=== PATIENT | male | born 1950 | race Caucasian/White ===

== ENCOUNTER 2016-09-15 11:40 | Emergency (ER) | payer MEDICARE, BC ==
--- NOTE | ~2016-09-15 | CR72 ---
[facility] A Service of [facility] RADIOLOGY TEXT RESULTS PATIENT: CHAYITO LAND LOCATION: [facility] : 48 UNIT #: [id number] AGE: [address]: Trey Ray MD SEX: M ORDER DR: [id number] [facility] [address] [place], [place] [address] [id number] E MR#: [id number] Acc #: [id number] NAME: CHAYITO LAND : 1950 SEX: M STUDY DATE/TIME: 09/15/2016 12:37 UNIT: [facility] ROOM: STUDY DESCRIPTION: CR Chest Single View Portable Attending Physician: Trey Ray M.D. Ordering Physician: Trey Ray M.D. Primary Care Physician: Corine Askew M.D. MEDICAL IMAGING REPORT This report is preliminary unless electronic signature is present EXAM Chest portable 09/15/2016 1237 hours CLINICAL HISTORY 65-year-old man with lightheadedness and syncope x2 today. History of hypertension, CHF and pacemaker. COMPARISON 08/26/2008 FINDINGS Portable upright chest demonstrates mild cardiomegaly and tortuous aorta. There is a left subclavian pacer device with leads over the right atrium and right ventricle. This is new from 08/26/2008. The pulmonary vascularity is normal. The lungs are clear. There is no effusion or pneumothorax. IMPRESSION There is mild cardiomegaly with dual-lead pacer. Aorta is mildly tortuous. Pulmonary vascularity is normal. The lungs are clear and there are no effusions. Dictated by... Erica Beaulieu M.D. THIS IS AN ELECTRONICALLY VERIFIED REPORT Erica Beaulieu M.D. at 09/16/2016 9:21 AM FLAKO/tj TD: 09/15/2016 13:31 JOB #: [id number] [facility] of [facility] RADIOLOGY TEXT RESULTS PATIENT: CHAYITO LAND [facility] [id number] : 48 UNIT #: [id number] AGE: [address]: Trey Ray MD SEX: M ORDER DR: MEDICAL IMAGING REPORT Page 1 of 1 COPY
--- NOTE | ~2016-09-15 | EKG ---
PATIENT: CHAYITO LAND UNIT #: [id number] Ventricular Rate: 64 BPM Atrial Rate: 88 BPM QRS Duration: 188 ms Q-T Interval: 482 ms QTC Calculation(Bezet): 497 ms Calculated R [place]: -77 degrees Calculated T [place]: 81 degrees Diagnosis Line: Ventricular-paced rhythm with underlying atrial Diagnosis Line: fibrillaton and intrinsic beats Diagnosis Line: Abnormal ECG Diagnosis Line: When compared with ECG of 06-DEC-2011 06:59, Diagnosis Line: Paced beats seen Diagnosis Line: Vent. rate has decreased BY 42 BPM Diagnosis Line: Confirmed by TANISHA SON MD ([id number]) on Diagnosis Line: 09/16/2016 7:40:20 AM INTERPRETING : ARACELI
[~2016-09-15 11:40] MED LIST: ALPRAZOLAM PO; AMIODARONE PO; AMITIZA24 MCG; ASPIRIN81 M1 PO; CARVEDILOL25 MG PO; COLACE PO; COREG; COREG PO; COREG12.5 MG PO; COUMADIN2.5 MG PO; COUMADIN5 MG PO; COUMADIN7.5 MG PO; DILAUDID PO; DILTIAZEM 24HR120 MG PO; KCL; LANOXIN125 MCG PO; LOSARTAN POTASS25 MG PO; LOTREL; LOTREL 5/10 MG1 CAP PO; LOVAZA1 G; LOVENOX100 MG/ML INJ; MAG-OX 400400 MG PO; MULTI-DAY VITAM1 TAB PO; NASACORT AQ16.5 GM; NEURONTIN PO; NEXIUM PO; NICOTINE T1 PATCH .2 TOP; NITROSTAT0.4 MG; NITROSTAT0.4 MG SL; OXYCONTIN PO; PAXIL PO; PLAVIX; PLAVIX PO; PRESTIQ PO; PRISTIQ PO; PRISTIQ100 MG PO; PROTONIX PO; SEROQUEL XR50 MG PO; SIMCOR 500-21 BOTTLE PO; SINGULAIR PO; SKELAXIN PO; SPIRIVA18 MCG INH; SYMBICORT INH; TIZANIDINE HCL4 M1 PO; XANAX0.5 MG PO; XOPENEX HFA15 GM
[2016-09-15 13:16] LABS: BASOPHIL# 0.1 X10e3 (0-0.3); BASOPHIL% 0.9 % (0-2.5); EOSINOPHIL# 0.3 X10e3 (0-0.7); EOSINOPHIL% 2.6 % (0.0-7.0); HEMATOCRIT 34.6 % (38.0-50.0); HEMOGLOBIN 11.3 gm/dL (13.0-16.0); LYMPHOCYTE# 1.5 X10e3 (1.0-3.5); LYMPHOCYTE% 13.8 % (17.0-45.0); MEAN CORPUSCULAR HEMOGLOBIN 30.2 PG (28-34); MEAN CORPUSCULAR HGB CONC 32.8 g/dL (30-36); MEAN PLATELET VOLUME 8.9 FL (6.5-11.5); MONOCYTE# 0.7 X10e3 (0-1.0); MONOCYTE% 6.1 % (3.0-12.0); NEUTROPHIL# 8.3 X10e3 (1.5-7.1); NEUTROPHIL% 76.6 % (40-75); PLATELET COUNT 133 X10e3 (140-420); RED BLOOD COUNT 3.76 X10e (3.90-5.60); RED CELL DISTRIBUTION WIDTH 17.5 % (11.0-15.5); WHITE BLOOD COUNT 10.8 X10e3 (4.0-10.5)
[2016-09-15 13:20] LABS: DIFF IND NO
[2016-09-15 13:29] LABS: INR 2.4; PROTHROMBIN TIME (PATIENT) 26.5 SECONDS (9.6-11.5)
[2016-09-15 13:41] LABS: ALBUMIN SERUM 3.4 g/dL (3.5-5.0); BILIRUBIN, DIRECT 0.6 mg/dL (0.0-0.2); BILIRUBIN,INDIRECT 1.2 mg/dL (0.0-0.9); BILIRUBIN,TOTAL 1.8 mg/dL (0.2-2.0); BUN/CREATININE RATIO 20.58; CALCIUM SERUM 8.2 mg/dL (8.4-10.2); CREATININE SERUM 1.7 mg/dL (0.6-1.4); GLOM FILT RATE Estimated 41.1 mL/min (>60); POTASSIUM 3.4 mmol/L (3.5-5.1); PROTEIN TOTAL SERUM 7.2 g/dL (6.0-8.3)
== END 2016-09-15 14:38 | disposition home or self-care (01) ==
LOC: CED 11:40
PROVIDERS: Emergency Medicine
DX: R42 Dizziness and giddiness (principal); T42.6X5A Adverse effect of other antiepileptic and sedative-hypnotic drugs, initial encounter; I11.0 Hypertensive heart disease with heart failure; I50.9 Heart failure, unspecified; I25.10 Atherosclerotic heart disease of native coronary artery without angina pectoris; Z90.89 Acquired absence of other organs; Z87.442 Personal history of urinary calculi; Z88.8 Allergy status to other drugs, medicaments and biological substances
CPT/HCPCS: 36415; 71010; 80048; 80076; 85025; 85610; 85730; 93005; 96360; 99284

== ENCOUNTER 2016-09-22 16:36 | Inpatient (IN) | payer MEDICARE, BC ==
--- NOTE | ~2016-09-22 | DS ---
Unit #: [id number] #: [id number] Patient: CHAYITO LAND [id number] [address] [address] [id number] I MR#: [id number] NAME: CHAYITO LAND. ROOM: 327 Age: 65 Sex: M Admission Date: 09/22/2016 : 1950 Discharge Date: 09/28/2016 Attending Physician: Stacy Faria M.D. Primary Care Physician: Corine Askew M.D. DISCHARGE SUMMARY DISPOSITION Going to ab. DISCHARGE DIAGNOSES 1. Status post fall with left tibial and fibula fractures, status post open reduction and internal fixation per Orthopedic Surgery. 2. History of coronary artery disease. 3. History of atrial fibrillation. 4. Hypertension. 5. Diabetes. 6. Chronic kidney disease. 7. Dyslipidemia. 8. History of hepatitis C. 9. History of seizure disorder. DISCHARGE MEDICATIONS 1. Benicar 40 mg daily. 2. Coumadin 7.5 mg p.o. Monday//Monday and 5 mg p.o. the rest of the days of the week. 3. Lyrica 150 mg t.i.d. 4. Zofran 4 p.o. q.4 p.r.n. 5. Seroquel 150 mg at bedtime. 6. Xanax 0.5 mg t.i.d. p.r.n. for anxiety. 7. Cardizem 300 mg p.o. daily. 8. MiraLax daily. 9. Pepcid 20 mg b.i.d. 10. Percocet 5/325 at 1 or 2 tablets p.o. q.4 hours p.r.n. for pain. CONSULTS DURING THIS HOSPITAL STAY Orthopedic Surgery, Dr. Cadet. LABS, DIAGNOSTICS, AND PROCEDURES DURING THIS HOSPITAL STAY 1. Open reduction and internal fixation for the left distal one-third tibial shaft fracture and left comminuted fibular shaft fracture done per Dr. Cadet on September 23, 2016. 2. Multiple x-rays including C-spine, thoracic spine, L-spine, tibia, and ankle, all without any fractures except the left tibia and fibula fractures. 3. Chest x-ray showed no acute findings. 4. CT of the head without contrast showed no acute findings. HISTORY OF PRESENT HOSPITAL STAY Please refer to History and Physical done by me for initial presentation on this gentleman. Unit #: [id number] #: [id number] Patient: CHAYITO LAND ACTIVE PROBLEMS DIAGNOSED Status post fall with left tibia and fibula fractures, status post OR with ORIF per Orthopedic Surgery, stable to be discharged. Continue Percocet. Continue PT/OT. Discharge to subacute rehab to Dr. Cb Hassan's care. History of coronary artery disease, stable. History of atrial fibrillation. Continue rate control with Cardizem. Continue chronic anticoagulation. INR at 1.7. Continue Coumadin. Monitor INR at subacute rehab. Hypertension. Continue home medications. History of diabetes. Cover with sliding scale. Chronic kidney disease, stable. BUN and creatinine from September 27 were 16 and 1.1. History of dyslipidemia in the past. History of hepatitis C in the past. History of seizure disorder remotely, currently seizure free. Disposition and discharge medications as above. Dictated by... Imer Em M.D. EMI/kylah TD: 09/28/2016 15:21 JOB #: [id number] DISCHARGE SUMMARY Page 1 of 1 X Imer Em MD X DISCHARGE SUMMARY
--- NOTE | ~2016-09-22 | CR58 ---
[facility] A Service of [facility] RADIOLOGY TEXT RESULTS PATIENT: CHAYITO LAND LOCATION: [facility] [id number] : 49 UNIT #: [id number] AGE: [address]: Stacy Faria MD SEX: M ORDER DR: [id number] [facility] [address] [place], [place] [address] [id number] E MR#: [id number] Acc #: [id number] NAME: CHAYITO LAND : 1950 SEX: M STUDY DATE/TIME: 09/22/2016 17:42 UNIT: [facility] ROOM: STUDY DESCRIPTION: CR Cervical Spine 2 or 3 Views Attending Physician: Cathy Duke M.D. Ordering Physician: Cathy Duke M.D. Primary Care Physician: Corine Askew M.D. MEDICAL IMAGING REPORT This report is preliminary unless electronic signature is present EXAM Cervical spine, 09/22/2016. INDICATIONS Neck pain after fall today. FINDINGS 5 views of the cervical spine were obtained. There is degenerative endplate spurring at multiple levels with disc space narrowing C5-6. Findings are compatible with degenerative disc disease. No acute fractures are seen. Alignment is normal. Prevertebral soft tissues are normal. IMPRESSION Multilevel degenerative disease, most pronounced at C5-6. No acute fractures. Dictated by... Moisés Josue Jr., M.D. THIS IS AN ELECTRONICALLY VERIFIED REPORT Moisés Josue Jr., M.D. at 09/22/2016 10:23 PM CEDRICK/tashi TD: 09/22/2016 20:58 JOB #: [id number] MEDICAL IMAGING REPORT Page 1 of 1 COPY
--- NOTE | ~2016-09-22 | CT71 ---
[facility] A Service of [facility] & [facility] RADIOLOGY TEXT RESULTS PATIENT: CHAYITO LAND LOCATION: [facility] : 48 UNIT #: [id number] AGE: [address]: Stacy Faria MD SEX: M ORDER DR: [id number] [facility] [address] [place], [place] [address] [id number] I MR#: [id number] Acc #: [id number] NAME: CHAYITO LAND. : 1950 SEX: M STUDY DATE/TIME: 09/22/2016 18:50 UNIT: [facility] ROOM: 18309 STUDY DESCRIPTION: CT Head Wo Contrast Attending Physician: Stacy Faria M.D. Ordering Physician: Cathy Duke M.D. Primary Care Physician: Corine Askew M.D. MEDICAL IMAGING REPORT This report is preliminary unless electronic signature is present EXAM CT brain without contrast. HISTORY Dizzy and near-syncope and fall today. TECHNIQUE This CT exam was performed with one or more of the following radiation dose reduction techniques: automatic exposure control, adjustment of mA and/or kV according to patient size, and iterative reconstruction. FINDINGS CT brain without contrast demonstrates no intracranial hemorrhage, mass or edema. No midline shift or ventricular dilatation or extraaxial fluid collection. Mild generalized cerebral cortical atrophy. Minimal chronic ischemic changes in the deep white matter. IMPRESSION No acute findings. Dictated by... Ruel Garcia M.D. THIS IS AN ELECTRONICALLY VERIFIED REPORT Ruel Garcia M.D. at 09/22/2016 10:47 PM CAL/tashi TD: 09/22/2016 21:24 JOB #: [id number] MEDICAL IMAGING REPORT Page 1 of 1 COPY
--- NOTE | ~2016-09-22 | CR252 ---
[facility] A Service of [facility] RADIOLOGY TEXT RESULTS PATIENT: CHAYITO LAND LOCATION: [facility] : 48 UNIT #: [id number] AGE: [address]: Stacy Faria MD SEX: M ORDER DR: [id number] [facility] [address] [place], [place] [address] [id number] E MR#: [id number] Acc #: [id number] NAME: CHAYITO LAND : 1950 SEX: M STUDY DATE/TIME: 09/22/2016 17:58 UNIT: [facility] ROOM: STUDY DESCRIPTION: CR Tibia and Fibula 2 Views Lt Attending Physician: Cathy Duke M.D. Ordering Physician: Cathy Duke M.D. Primary Care Physician: Corine Askew M.D. MEDICAL IMAGING REPORT This report is preliminary unless electronic signature is present EXAM Left tib-fib, 09/22/2016. INDICATION Lower leg and ankle pain after fall today. FINDINGS AP and lateral views of the tibia-fibula were obtained. Again seen are markedly comminuted fractures in the distal tibia and fibular diaphyses. There is anterior displacement of the distal fragments by about 1/3rd one-half shaft width. There is osteoarthritis in the left knee, particularly in the lateral compartment. IMPRESSION Comminuted fractures of the diaphyses of the distal tibia and fibula as above. There is osteoarthritis in the knee, but no additional fractures are seen. Dictated by... Moisés Josue Jr., M.D. THIS IS AN ELECTRONICALLY VERIFIED REPORT Moisés Josue Jr., M.D. at 09/22/2016 10:23 PM CEDRICK/tashi TD: 09/22/2016 20:44 JOB #: [id number] MEDICAL IMAGING REPORT Page 1 of 1 COPY
--- NOTE | ~2016-09-22 | CR181 ---
[facility] A Service of [facility] & [facility] RADIOLOGY TEXT RESULTS PATIENT: CHAYITO LAND LOCATION: [facility] : 48 UNIT #: [id number] AGE: [address]: Stacy Faria MD SEX: M ORDER DR: [id number] [facility] [address] [place], [place] [address] [id number] E MR#: [id number] Acc #: [id number] NAME: CHAYITO LAND : 1950 SEX: M STUDY DATE/TIME: 09/22/2016 17:56 UNIT: [facility] ROOM: STUDY DESCRIPTION: CR Lumbar Spine 2 or 3 Views Attending Physician: Cathy Duke M.D. Ordering Physician: Cathy Duke M.D. Primary Care Physician: Corine Askew M.D. MEDICAL IMAGING REPORT This report is preliminary unless electronic signature is present EXAM Lumbar spine, 09/22/2016. INDICATIONS Low back pain after a fall today. FINDINGS 3 views of the lumbar spine were obtained. There is extensive multilevel degenerative disc disease with endplate spurring. There is mild retrolisthesis of L4 on L5 and L3 on L4, and L2 on L3. This is presumably degenerative in origin. No clearly acute compression fractures are seen. IMPRESSION Multilevel degenerative disease as above with multilevel spondylolisthesis. No acute fractures are identified. Dictated by... Moisés Josue Jr., M.D. THIS IS AN ELECTRONICALLY VERIFIED REPORT Moisés Josue Jr., M.D. at 09/22/2016 10:23 PM CEDRICK/tashi TD: 09/22/2016 20:54 JOB #: [id number] MEDICAL IMAGING REPORT Page 1 of 1 COPY
--- NOTE | ~2016-09-22 | CR252 ---
[facility] A Service of [facility] RADIOLOGY TEXT RESULTS PATIENT: CHAYITO LAND LOCATION: [facility] 327- : [birth year] UNIT #: [id number] AGE: [address]: Stacy Faria MD SEX: M ORDER DR: [id number] [facility] [address] [place], [place] [address] [id number] I MR#: [id number] Acc #: [id number] NAME: CHAYITO LAND : 1950 SEX: M STUDY DATE/TIME: 09/23/2016 15:51 UNIT: [address] ROOM: [facility] STUDY DESCRIPTION: CR Tibia and Fibula 2 Views Lt Attending Physician: Stacy Faria M.D. Ordering Physician: Stanton Cadet M.D. Primary Care Physician: Corine Askew M.D. MEDICAL IMAGING REPORT This report is preliminary unless electronic signature is present EXAM Intraoperative spot films, left tibia and fibula, 10 views. HISTORY Internal fixation of fractures. Fluoroscopy time 2 minutes, 45 seconds. FINDINGS Ten views of the left tibia and fibula were obtained, demonstrating sequential placement of internal fixation, with plate and screw placement across the comminuted fractures of the distal shafts of the tibia and fibula. Bone alignment is satisfactory, and the fixation hardware appears in satisfactory position. Bone fracture fragments are displaced up to approximately 5 mm. Dictated by... Ruel Garcia M.D. THIS IS AN ELECTRONICALLY VERIFIED REPORT Ruel Garcia M.D. at 09/26/2016 10:15 AM CAL/tashi TD: 09/23/2016 23:59 JOB #: [id number] MEDICAL IMAGING REPORT Page 1 of 1 COPY
--- NOTE | ~2016-09-22 | CR252 ---
[facility] A Service of [facility] RADIOLOGY TEXT RESULTS PATIENT: CHAYITO LAND LOCATION: [facility] 327-01 : [birth year] UNIT #: [id number] AGE: [address]: Stacy Faria MD SEX: M ORDER DR: [id number] [place] [id number]. [place], [place] [address] [id number] I MR#: [id number] Acc #: [id number] NAME: CHAYITO LAND : 1950 SEX: M STUDY DATE/TIME: 09/23/2016 18:17 UNIT: [address] ROOM: [facility] STUDY DESCRIPTION: CR Tibia and Fibula 2 Views Lt Attending Physician: Stacy Faria M.D. Ordering Physician: Stanton Cadet M.D. Primary Care Physician: Corine Askew M.D. MEDICAL IMAGING REPORT This report is preliminary unless electronic signature is present EXAM 2 views of the left tibia and fibula DATE 09/23/2016 at 18:17 HISTORY Postop left tibia-fibula open reduction internal fixation. COMPARISON Intraoperative fluoroscopic images over the left tibia and fibula 09/23/2016 15:51. Left tibia-fibula radiographs 09/22/2016 at 17:58. FINDINGS The patient has undergone interval plate and screw fixation of the comminuted fractures of the distal tibia and fibular shafts. Both of the main fracture sites appear in satisfactory alignment for healing. Knee and ankle joints appear appropriately aligned. IMPRESSION 1. Open reduction internal fixation changes of the comminuted fractures of the distal tibia and fibular shafts, and improved alignment for healing. No joint dislocation. Dictated by... Carola Roberto M.D. THIS IS AN ELECTRONICALLY VERIFIED REPORT Carola Roberto M.D. at 09/27/2016 8:41 AM ELO/cassandra TD: 09/24/2016 00:44 [facility] A Service of [facility] RADIOLOGY TEXT RESULTS PATIENT: CHAYITO LAND LOCATION: [facility] 327-01 : [birth year] UNIT #: [id number] AGE: [address]: Stacy Faria MD SEX: M ORDER DR: JOB #: [id number] MEDICAL IMAGING REPORT Page 1 of 1 COPY
--- NOTE | ~2016-09-22 | CR63 ---
[facility] A Service of [facility] & [facility] RADIOLOGY TEXT RESULTS PATIENT: CHAYITO LAND LOCATION: [facility] : 49 UNIT #: [id number] AGE: [address]: Stacy Faria MD SEX: M ORDER DR: [id number] [facility] [address] [place], [place] [address] [id number] E MR#: [id number] Acc #: [id number] NAME: CHAYITO LAND : 1950 SEX: M STUDY DATE/TIME: 09/22/2016 18:11 UNIT: [facility] ROOM: STUDY DESCRIPTION: CR Chest 2 View Attending Physician: Cathy Duke M.D. Ordering Physician: Cathy Duke M.D. Primary Care Physician: Corine Askew M.D. MEDICAL IMAGING REPORT This report is preliminary unless electronic signature is present EXAM PA and lateral chest. HISTORY Chest pain after fall today. Back pain. FINDINGS 2 views of the chest demonstrate the cardiac size and pulmonary vascularity are within normal limits. No airspace infiltrates or effusions. Minimal probable pleural thickening along the lateral right minor fissure. Left subclavian pacer leads extend into the right atrium and right ventricle. Mildly tortuous descending thoracic aorta. IMPRESSION No acute findings and no active disease. No focal infiltrates, effusions or pneumothorax. Dictated by... Ruel Garcia M.D. THIS IS AN ELECTRONICALLY VERIFIED REPORT Ruel Garcia M.D. at 09/22/2016 10:47 PM CAL/tashi TD: 09/22/2016 20:59 JOB #: [id number] MEDICAL IMAGING REPORT Page 1 of 1 COPY
--- NOTE | ~2016-09-22 | OR ---
Unit #: [id number] #: [id number] Patient: CHAYITO LAND [id number] [address] [address] [id number] I MR#: [id number] NAME: CHAYITO LAND ROOM: [facility] Date of Procedure: 09/23/2016 Admission Date: 09/22/2016 Surgeon: Stanton Cadet M.D. : 1950 Attending Physician: Stacy Faria M.D. Primary Care Physician: Corine Askew M.D. OPERATIVE REPORT PREOPERATIVE DIAGNOSES 1. Left distal one-third tibial shaft fracture. 2. Left comminuted fibular shaft fracture. POSTOPERATIVE DIAGNOSES 1. Left distal one-third tibial shaft fracture. 2. Left comminuted fibular shaft fracture. PROCEDURES PERFORMED 1. Open reduction and internal fixation of right distal tibia fracture. 2. Open reduction and internal fixation of right fibular fracture. EVENT SALES ASSISTANT Jennifer Paredes. ANESTHESIA General. ESTIMATED BLOOD LOSS Minimal. TOURNIQUET TIME 130 minutes. IMPLANTS 1. [employer] 13-hole distal tibial plate. 2. [employer] 10-hole distal fibula plate. INDICATIONS FOR PROCEDURE Mr. Spencer is a 65-year-old gentleman, who sustained an injury to his left distal tibia and fibula in a ground level fall. He is a poor historian. The details of the event are somewhat unclear. We discussed open reduction and internal fixation of the tibia and possibly the fibula. He elected to proceed. DESCRIPTION OF PROCEDURE The patient was identified in the preoperative holding area. The operative site was marked. Preoperative antibiotics were administered. The patient was brought to the operating room and placed supine on the operating table. A general anesthetic was induced. A bump was placed under the left buttock. A tourniquet was applied to the left thigh. Left leg was then prepped and draped in sterile fashion. Unit #: [id number] #: [id number] Patient: CHAYITO LAND The leg was exsanguinated and tourniquet inflated. A plate of the desired size was laid up against the leg and selected and attached to the targeting guide. An incision was made over the medial distal tibia. A Ryan elevator was then advanced up the tibial shaft. The plate was then advanced up the shaft in a subperiosteal fashion. The plate was identified proximally. An incision was made at this level and the plate position on the bone in the desired position. The fracture was then reduced with longitudinal traction. The plate was secured distally with a locking screw initially and then proximally with a drill pin. The fracture reduction was near anatomic on the AP and lateral radiographs; however, the fracture was in slight valgus. We removed the locking screw and used a nonlocking screw which brought the distal tibia fracture in anatomic alignment. The fixation was then proceeded with placement of 2 nonlocking and 2 locking screws in the shaft given somewhat soft purchase of the nonlocking cortical screws. Care was taken to avoid locking directly adjacent to the fracture. We have proceeded with fixation distally in the metaphyseal segment with 3 locking screws. The previous nonlocking screw was removed and changed back to a locking screw. A fifth locking screw was then placed. At that point, we had completed fixation of the tibia. During our fixation, we did check a lateral radiograph midway through our fixation and noted that the tibia was in slight recurvatum. This occurred and we changed our initial fixation. As we had an anatomic reduction on AP and this was only a slight recurvatum deformity, we elected to proceed with definitive fixation of the tibia. The ankle was then stressed and the fibula fracture was still unstable. We therefore elected to proceed with fixation of the fibula. An incision was made distally over the fibula and dissection carried down to the fibular head itself. Subperiosteal dissection was performed utilizing minimally invasive plating technique. This was due to poor soft tissue envelope about the ankle. We made a separate incision proximally at the proximal extent of the plate and identified the plate and placed this in the desired position on the fibular shaft. We placed a total of 3 nonlocking fully-threaded cortical screws proximally in the shaft and a total of 4 locking screws distally. Final images were obtained and demonstrated an anatomic reduction on AP and again, slight recurvatum on the lateral radiograph. Overall, alignment was satisfactory. The wounds were then irrigated with sterile saline via bulb lavage. The wounds were then closed with 3-0 Vicryl and 3-0 nylon. A well-padded posterior splint was applied. DISPOSITION Stable to the recovery room. Dictated by... Corry Temple/kristina TD: 09/24/2016 04:11 JOB #: [id number] Unit #: [id number] #: [id number] Patient: CHAYITO LAND OPERATIVE REPORT Page 1 of 1 X tSanton Cadet MD PROCEDURE OPERATIVE NOTE
--- NOTE | ~2016-09-22 | HP ---
Unit #: [id number] #: [id number] Patient: CHAYITO DUVAL [id number] [facility] [address] [facility]. [place], [place] [address] [id number] I MR#: [id number] NAME: CHAYITO DUAVL ROOM: 327 Age: 65 Sex: M Admission Date: 09/22/2016 : 1950 Attending Physician: Stacy Faria M.D. Primary Care Physician: Corine Askew M.D. HISTORY AND PHYSICAL ADMISSION DIAGNOSES 1. Status post fall. 2. Left tibia/fibula fracture distally, status post OR per Orthopedic Surgery. 3. History of coronary artery disease. 4. History of atrial fibrillation on chronic anticoagulation, status post permanent pacemaker. 5. Hypertension. 6. Chronic kidney disease with hypokalemia. 7. Diabetes. 8. Dyslipidemia. 9. History of hepatitis C. 10. History of seizure disorder in the past. HISTORY OF PRESENT ILLNESS Mr. Chayito Duval is a 65-year-old gentleman with the multiple past medical issues including history of intracardiac thrombus, history of afib, history of coronary artery disease, status post PCI with stents, history of status post permanent pacemaker, history of CKD, dyslipidemia, hepatitis C, diabetes, hypertension, questionable CVA in the past, who apparently was at home and became dizzy, lost his balance and fell. Initially the skeletal survey upon the arrival at the [facility] ER was negative except of distal left tibia/fibula fracture. CT of the head also was done which was unremarkable. Patient was treated with the supportive care, symptomatic management. Orthopedic Surgery was consulted. He was given fresh frozen plasma, two units, secondary to supratherapeutic INR at 3.8. INR was brought down and patient was taken to OR, underwent the fixation with ORIF. Currently patient is status post OR. He is very disoriented, most likely secondary to aesthetics and pain meeds on top of them, therefore I am not able to obtain any further history, neither am I able to obtain any review of systems. PAST MEDICAL HISTORY Past medical history on this gentleman is otherwise significant for, again, coronary artery disease, afib, intracardiac thrombus, hypertension, dyslipidemia, diabetes, hepatitis C, seizure disorder, depression, history of polysubstance abuse PAST SURGICAL HISTORY Past surgical history is significant for appendectomy, kidney stone removal, pacemaker placement, PCI with stents, trach placement and then removal. Unit #: [id number] #: [id number] Patient: CHAYITO DUVAL ALLERGIES Coded allergies include Dilaudid, Lotrel, amlodipine. SOCIAL HISTORY He is an active smoker, denies any current alcohol or illicit drug use. FAMILY HISTORY Unremarkable. PHYSICAL EXAMINATION GENERAL: On the physical exam patient is a 65-year-old gentleman not in acute distress. He is lethargic but easily able to be aroused. HEENT: Significant for bruising around the right superior periorbital area. Oropharynx clear. NECK: Neck is supple. No mass. No JVD. No bruits. CHEST: Chest is diminished bilaterally in the bases. CARDIOVASCULAR EXAM: S1, S2. No murmurs. ABDOMEN: Abdomen is soft, nontender and nondistended. EXTREMITIES: Lower extremities without any significant cyanosis, clubbing or edema. NEUROLOGIC EXAM: Very limited secondary to patient's drowsiness secondary to anesthetics and pain meds but patient is easily able to be aroused and answering questions. DIAGNOSTIC STUDIES IMAGING: Skeletal survey as above. CT of the head as above. LABORATORY: Chemistry this morning significant for BUN and creatinine 22 and 1.6, potassium of 3.3 which had been replaced. PT and INR last one was 28.9 and 1.9, again patient had the two FFPs prior and two FFPs after the surgery. Set of cardiac enzymes negative. White count 8.4, hemoglobin and hematocrit 11.4 and 35.1, platelets 167. ASSESSMENT AND PLAN 1. Status post fall with a left distal tibia/fibula fracture, status post open reduction and internal fixation: Continue IV morphine. Continue supportive care and symptomatic management. Orthopedic Surgery help appreciated greatly. 2. History of coronary artery disease along with the atrial fibrillation, status post permanent pacemaker: Continue anticoagulation once okay with the Orthopedic Surgery. Set of cardiac enzymes negative. Consider cardiology evaluation as needed. 3. Hypertension: Will add the hydralazine 10 IV p.r.n. for systolic blood pressure greater than 160. 4. Chronic kidney disease with hypokalemia: Replaced potassium. Follow up on the BMP in the morning. Follow up with the magnesium level. 5. Dyslipidemia: Continue home medications. 6. Diabetes: Treat with sliding scale for now. 7. History of hepatitis C. 8. History of seizure disorder in the past: Monitor closely. 9. GI and DVT prophylaxis: INR at 1.9, continue Coumadin. Will add the Pepcid. Unit #: [id number] #: [id number] Patient: CHAYITO DUVAL Dictated by Imer Em M.D. OC/cf TD: 09/23/2016 21:24 JOB #: [id number] HISTORY AND PHYSICAL Page 1 of 1 X Imer Em MD X HISTORY AND PHYSICAL
--- NOTE | ~2016-09-22 | EKG ---
PATIENT: CHAYITO LAND UNIT #: [id number] Ventricular Rate: 60 BPM Atrial Rate: 44 BPM QRS Duration: 188 ms Q-T Interval: 436 ms QTC Calculation(Bezet): 436 ms Calculated R [place]: -79 degrees Calculated T [place]: 84 degrees Diagnosis Line: Ventricular-paced rhythm Diagnosis Line: Abnormal ECG Diagnosis Line: When compared with ECG of 15-SEP-2016 12:41, Diagnosis Line: Vent. rate has decreased BY 4 BPM Diagnosis Line: Confirmed by RIHCARD HARRELL MD ([id number]) on 09/22/2016 Diagnosis Line: 6:11:09 PM INTERPRETING MD: JULIO CESAR MCKENZIE
--- NOTE | ~2016-09-22 | CR20 ---
[facility] A Service of [facility] RADIOLOGY TEXT RESULTS PATIENT: CHAYITO LAND LOCATION: [facility] : 49 UNIT #: [id number] AGE: [address]: Stacy Faria MD SEX: M ORDER DR: [id number] [facility] [address] [facility] [place] [facility]. [place], [place] [address] [id number] E MR#: [id number] Acc #: [id number] NAME: CHAYITO LAND : 1950 SEX: M STUDY DATE/TIME: 09/22/2016 18:02 UNIT: [facility] ROOM: STUDY DESCRIPTION: CR Ankle Min 3 Views Lt Attending Physician: Cathy Duke M.D. Ordering Physician: Cathy Duke M.D. Primary Care Physician: Corine Askew M.D. MEDICAL IMAGING REPORT This report is preliminary unless electronic signature is present EXAM Left ankle, 09/22 INDICATIONS Ankle pain after fall today. FINDINGS Two views of the left ankle were obtained. There are markedly comminuted irregular fractures of the distal diaphysis of the tibia and fibula. Primary fracture fragments are mildly displaced in the anterior direction by about one-third to one-half shaft width. The ankle mortise remains intact. Incidental note is made of plantar calcaneal spur. IMPRESSION Comminuted irregular fractures of the distal tibia and fibula diaphyses. The primary fracture fragments are displaced in the anterior direction by about one-half to one-third shaft width. Dictated by... Moisés Josue Jr., M.D. THIS IS AN ELECTRONICALLY VERIFIED REPORT Moisés Josue Jr., M.D. at 09/22/2016 10:23 PM CEDRICK/ashley TD: 09/22/2016 20:50 JOB #: [id number] MEDICAL IMAGING REPORT Page 1 of 1 COPY
--- NOTE | ~2016-09-22 | CO ---
Unit #: [id number] #: [id number] Patient: CHAYITO LAND [id number] [address] [place], [place] [address] [id number] I MR#: [id number] NAME: CHAYITO LAND ROOM: 327 Age: 65 Sex: M Admission Date: 09/22/2016 : 1950 Attending Physician: Stacy Faria M.D. Primary Care Physician: Corine Askew M.D. CONSULTATION REPORT CHIEF COMPLAINT Left ankle pain. HISTORY OF PRESENT ILLNESS Chayito is a 65-year-old gentleman, who presents today after an injury to his left ankle. He was outside when he tripped and fell in a ground-level fall, injuring his left ankle. He was subsequently unable to stand or bear weight on the affected extremity. He tried to do so, was unable. He was later brought to the emergency department, where plain film radiographs revealed a distal tibia and fibula fracture. The patient was then placed in a splint in the emergency department. He is currently examined supine in his hospital bed. He is complaining of pain in his left lower extremity with any attempted range of motion. His pain is relieved by immobilization, elevation, and pain medication. PAST MEDICAL HISTORY Coronary artery disease, hepatitis C, renal insufficiency, hypertension, hyperlipidemia, atrial fibrillation with history of atrial thrombus, now on chronic anticoagulation, sleep apnea, gastroesophageal reflux. PAST SURGICAL HISTORY Appendectomy, lithotripsy, pacemaker implantation. SOCIAL HISTORY The patient denies alcohol or illicit drug use. He smokes less than half a pack of cigarettes daily. FAMILY HISTORY Congestive heart failure in his father. Otherwise, noncontributory to the current illness. ALLERGIES Benazepril, Lotrel, Dilaudid. MEDICATIONS Prior home medication list is reviewed, but needs to be confirmed. Medications include Coreg, aspirin, Xanax, tizanidine, Pristiq, Symbicort, digoxin, Seroquel, Colace, magnesium supplement, multivitamin, Xopenex inhaler, Spiriva inhaler, Singulair, Lovaza, Cardizem, losartan, Coumadin, Nexium. REVIEW OF SYSTEMS Negative except as noted in the HPI. Unit #: [id number] #: [id number] Patient: CHAYITO LAND PHYSICAL EXAMINATION GENERAL APPEARANCE: Age-appropriate appearing gentleman, examined supine in his hospital bed, in no acute distress or discomfort. PSYCHIATRIC: Awake, alert, and oriented to person, place, time, and situation with normal range of mood and affect. CARDIAC: Irregularly irregular rhythm. PULMONARY: No increased work of breathing. No audible expiratory wheeze. Symmetric chest rise. ABDOMEN: Nondistended. NEUROLOGIC: Intact. Flexion-extension of the lesser toes and of the great toe in a splint on the left lower extremity. Sensation is intact distally at the toes. VASCULAR: His toes are warm and well perfused with brisk capillary refill. SKIN: He is in a splint on the left lower extremity. This is not taken down, given the known fracture. There is no evidence of any other cutaneous rashes or ulcers. MUSCULOSKELETAL: He is in a posterior splint on the left lower extremity. Further range of motion is deferred, given the known fracture. DIAGNOSTIC STUDIES IMAGING STUDIES: Plain film radiographs reviewed of the left tibia and the left ankle. These demonstrate a displaced distal one-third tibial shaft fracture with associated distal fibular fracture. LABORATORY RESULTS: INR is 4.3. Hemoglobin is 11.4 with a white blood cell count of 8.4. IMPRESSION This is a 65-year-old gentleman with a left distal one-third tibial shaft fracture and distal fibular fracture with a supratherapeutic INR at 4.3. PLAN He was given 2 units of FFP. We will recheck his INR. In any event that this does normalize, then he will undergo surgery later today. He may require, however, an additional 2 units of FFP, in which case the surgery will likely be delayed until Monday morning. He will continue to be n.p.o. for now. The nature of surgical intervention has been discussed with the patient, which would be with an open reduction and internal fixation of the tibia fracture with or without fixation of the fibula. The nature of the surgery has been reviewed as well as expected recovery and possible adverse events and complications. At this point, elected to proceed with surgical treatment. Dictated by... Corry Temple/kristina TD: 09/24/2016 05:34 JOB #: [id number] Unit #: [id number] #: [id number] Patient: CHAYITO LAND CONSULTATION REPORT Page 1 of 1 X Stanton Cadet MD CONSULTATION REPORT
--- NOTE | ~2016-09-22 | CR243 ---
[facility] A Service of [facility] RADIOLOGY TEXT RESULTS PATIENT: CHAYITO LAND LOCATION: [facility] : 49 UNIT #: [id number] AGE: [address]: Stacy Faria MD SEX: M ORDER DR: [id number] [facility] [address] [facility]. [place], [place] [address] [id number] E MR#: [id number] Acc #: [id number] NAME: CHAYITO LAND : 1950 SEX: M STUDY DATE/TIME: 09/22/2016 17:47 UNIT: [facility] ROOM: STUDY DESCRIPTION: CR Thoracic Spine 3 Views Attending Physician: Cathy Duke M.D. Ordering Physician: Cathy Duke M.D. Primary Care Physician: Corine Askew M.D. MEDICAL IMAGING REPORT This report is preliminary unless electronic signature is present EXAM Thoracic spine, 09/22/2016. INDICATION Mid to upper back pain after fall today. FINDINGS 3 views of the thoracic spine were obtained. No comparison. There is degenerative endplate spurring at multiple levels. No acute compression fractures are seen. Alignment is within normal limits. IMPRESSION Multilevel degenerative spurring. No acute fracture or subluxation is seen. Dictated by... Moisés Josue Jr., M.D. THIS IS AN ELECTRONICALLY VERIFIED REPORT Moisés Josue Jr., M.D. at 09/22/2016 10:23 PM CEDRICK/tashi TD: 09/22/2016 20:56 JOB #: [id number] MEDICAL IMAGING REPORT Page 1 of 1 COPY
[2016-09-22] MEDS ORDERED: DILTIAZEM 24HR300 M1 PO (16:57)
[2016-09-22] MEDS ORDERED: SEROQUEL PO (16:58)
[2016-09-22] MEDS ORDERED: BENICAR PO (16:58)
[2016-09-22] MEDS ORDERED: COUMADIN PO ×2 (16:58→16:59)
[2016-09-22] MEDS ORDERED: XANAX0.5 M1 PO (17:00)
[2016-09-22] MEDS ORDERED: DIGOX250 MCG PO (17:00)
[2016-09-22] MEDS ORDERED: LYRICA PO (17:00)
[2016-09-22] MEDS ORDERED: PATIENT'S PHARMACY (17:01)
[2016-09-22 17:38] LABS: BASOPHIL# 0.1 X10e3 (0-0.3); BASOPHIL% 1.2 % (0-2.5); EOSINOPHIL# 0.2 X10e3 (0-0.7); EOSINOPHIL% 2.3 % (0.0-7.0); HEMATOCRIT 36.8 % (38.0-50.0); HEMOGLOBIN 12.1 gm/dL (13.0-16.0); LYMPHOCYTE# 1.6 X10e3 (1.0-3.5); LYMPHOCYTE% 14.8 % (17.0-45.0); MEAN CELL VOLUME 91.3 FL (83-96); MEAN CORPUSCULAR HEMOGLOBIN 30.1 PG (28-34); MEAN PLATELET VOLUME 8.1 FL (6.5-11.5); MONOCYTE# 0.9 X10e3 (0-1.0); MONOCYTE% 8.1 % (3.0-12.0); NEUTROPHIL% 73.6 % (40-75); PLATELET COUNT 197 X10e3 (140-420); RED BLOOD COUNT 4.03 X10e (3.90-5.60); RED CELL DISTRIBUTION WIDTH 16.5 % (11.0-15.5); WHITE BLOOD COUNT 10.9 X10e3 (4.0-10.5)
[2016-09-22 17:39] LABS: POC - CKMB 1.5 ng/mL (0.0-7.9); POC - TROPONIN <0.05 ng/mL (<=0.05)
[2016-09-22 17:41] LABS: DIFF IND NO
[2016-09-22 17:56] LABS: ALBUMIN SERUM 3.5 g/dL (3.5-5.0); ALKALINE PHOSPHATASE 70 U/L (32-92); ALT (SGPT) 20 U/L (10-40); AST (SGOT) 13 U/L (10-42); BILIRUBIN, DIRECT 0.2 mg/dL (0.0-0.2); BILIRUBIN,INDIRECT 0.5 mg/dL (0.0-0.9); BILIRUBIN,TOTAL 0.7 mg/dL (0.2-2.0); BLOOD UREA NITROGEN 27 mg/dL (9-23); BUN/CREATININE RATIO 14.21; CALCIUM SERUM 8.4 mg/dL (8.4-10.2); CARBON DIOXIDE 26 mmol/L (22-31); CHLORIDE 101 mmol/L (100-111); CREATININE SERUM 1.9 mg/dL (0.6-1.4); GLOM FILT RATE Estimated 35.9 mL/min (>60); GLUCOSE FASTING 114 mg/dL (70-110); POTASSIUM 3.3 mmol/L (3.5-5.1); PROTEIN TOTAL SERUM 7.2 g/dL (6.0-8.3); SODIUM 135 mmol/L (135-145)
[2016-09-22 18:02] LABS: ALCOHOL BLOOD <5 mg/dL (0)
[2016-09-22 19:58] LABS: POC - CKMB 1.1 ng/mL (0.0-7.9); POC - TROPONIN <0.05 ng/mL (<=0.05)
[2016-09-22 20:52] LABS: URINE SOURCE CLEAN CATCH
[2016-09-22 20:58] LABS: URINE APPEARANCE CLEAR; URINE BILIRUBIN NEG (NEG); URINE BLOOD NEG (NEG); URINE COLOR DK YELLOW; URINE GLUCOSE NEG (NEG); URINE KETONE NEG (NEG); URINE LEUKOCYTE ESTERASE NEG (NEG); URINE NITRATE NEG (NEG); URINE PH 5.5 (5-8); URINE PROTEIN TRACE (NEG); URINE SPECIFIC GRAVITY 1.019 (1.003-1.035)
[2016-09-22 21:02] LABS: CULTURE INDICATED? NO
[2016-09-22 21:17] LABS: INR 3.8
[2016-09-22 21:19] LABS: PROTHROMBIN TIME (PATIENT) 41.6 SECONDS (9.6-11.5)
[2016-09-23 05:18] LABS: BASOPHIL# 0.1 X10e3 (0-0.3); BASOPHIL% 1.3 % (0-2.5); EOSINOPHIL# 0.3 X10e3 (0-0.7); EOSINOPHIL% 3.1 % (0.0-7.0); HEMATOCRIT 35.1 % (38.0-50.0); HEMOGLOBIN 11.4 gm/dL (13.0-16.0); LYMPHOCYTE# 1.5 X10e3 (1.0-3.5); LYMPHOCYTE% 17.8 % (17.0-45.0); MEAN CELL VOLUME 92.4 FL (83-96); MEAN CORPUSCULAR HGB CONC 32.5 g/dL (30-36); MEAN PLATELET VOLUME 7.7 FL (6.5-11.5); MONOCYTE# 0.7 X10e3 (0-1.0); MONOCYTE% 8.6 % (3.0-12.0); NEUTROPHIL# 5.8 X10e3 (1.5-7.1); NEUTROPHIL% 69.2 % (40-75); PLATELET COUNT 167 X10e3 (140-420); RED CELL DISTRIBUTION WIDTH 16.7 % (11.0-15.5); WHITE BLOOD COUNT 8.4 X10e3 (4.0-10.5)
[2016-09-23 05:19] LABS: DIFF IND NO
[2016-09-23 06:06] LABS: BUN/CREATININE RATIO 13.75; CALCIUM SERUM 8.2 mg/dL (8.4-10.2); CREATININE SERUM 1.6 mg/dL (0.6-1.4); GLOM FILT RATE Estimated 44.3 mL/min (>60); POTASSIUM 3.3 mmol/L (3.5-5.1)
[2016-09-23 07:46] LABS: INR 4.3; PROTHROMBIN TIME (PATIENT) 47.7 SECONDS (9.6-11.5)
[2016-09-23 13:46] LABS: INR 1.9
[2016-09-23 13:47] LABS: PROTHROMBIN TIME (PATIENT) 20.9 SECONDS (9.6-11.5)
[2016-09-24 05:34] LABS: BASOPHIL# 0.1 X10e3 (0-0.3); BASOPHIL% 0.8 % (0-2.5); EOSINOPHIL# 0.1 X10e3 (0-0.7); EOSINOPHIL% 0.9 % (0.0-7.0); HEMATOCRIT 31.3 % (38.0-50.0); HEMOGLOBIN 10.3 gm/dL (13.0-16.0); LYMPHOCYTE# 1.3 X10e3 (1.0-3.5); LYMPHOCYTE% 10.4 % (17.0-45.0); MEAN CELL VOLUME 90.6 FL (83-96); MEAN CORPUSCULAR HEMOGLOBIN 29.7 PG (28-34); MEAN CORPUSCULAR HGB CONC 32.8 g/dL (30-36); MONOCYTE# 1.3 X10e3 (0-1.0); MONOCYTE% 10.6 % (3.0-12.0); NEUTROPHIL# 9.4 X10e3 (1.5-7.1); NEUTROPHIL% 77.3 % (40-75); PLATELET COUNT 181 X10e3 (140-420); RED BLOOD COUNT 3.45 X10e (3.90-5.60); RED CELL DISTRIBUTION WIDTH 16.5 % (11.0-15.5); WHITE BLOOD COUNT 12.2 X10e3 (4.0-10.5)
[2016-09-24 05:35] LABS: DIFF IND NO
[2016-09-24 05:49] LABS: INR 1.9; PROTHROMBIN TIME (PATIENT) 20.4 SECONDS (9.6-11.5)
[2016-09-24 06:18] LABS: BUN/CREATININE RATIO 11.81; CALCIUM SERUM 8.2 mg/dL (8.4-10.2); CREATININE SERUM 1.1 mg/dL (0.6-1.4); GLOM FILT RATE Estimated 69.6 mL/min (>60); MAGNESIUM 1.4 mg/dL (1.6-3.0); POTASSIUM 3.4 mmol/L (3.5-5.1)
[2016-09-25 09:47] LABS: HEMATOCRIT 28.2 % (38.0-50.0); HEMOGLOBIN 9.4 gm/dL (13.0-16.0); MEAN CELL VOLUME 90.6 FL (83-96); MEAN CORPUSCULAR HEMOGLOBIN 30.2 PG (28-34); MEAN CORPUSCULAR HGB CONC 33.3 g/dL (30-36); MEAN PLATELET VOLUME 7.8 FL (6.5-11.5); RED BLOOD COUNT 3.11 X10e (3.90-5.60); RED CELL DISTRIBUTION WIDTH 16.3 % (11.0-15.5)
[2016-09-25 10:12] LABS: BUN/CREATININE RATIO 12.5; CALCIUM SERUM 7.5 mg/dL (8.4-10.2); CREATININE SERUM 1.2 mg/dL (0.6-1.4); GLOM FILT RATE Estimated 62.7 mL/min (>60); MAGNESIUM 1.5 mg/dL (1.6-3.0); POTASSIUM 3.1 mmol/L (3.5-5.1)
[2016-09-25 12:25] LABS: INR 2.4; PROTHROMBIN TIME (PATIENT) 26.1 SECONDS (9.6-11.5)
[2016-09-26 07:11] LABS: HEMATOCRIT 27.2 % (38.0-50.0); MEAN CELL VOLUME 90.3 FL (83-96); MEAN CORPUSCULAR HGB CONC 33.3 g/dL (30-36); MEAN PLATELET VOLUME 8.1 FL (6.5-11.5); RED BLOOD COUNT 3.01 X10e (3.90-5.60); RED CELL DISTRIBUTION WIDTH 16.4 % (11.0-15.5); WHITE BLOOD COUNT 9.4 X10e3 (4.0-10.5)
[2016-09-26 07:25] LABS: INR 2.3; PROTHROMBIN TIME (PATIENT) 24.4 SECONDS (9.6-11.5)
[2016-09-26 08:08] LABS: BUN/CREATININE RATIO 16.66; CALCIUM SERUM 8.5 mg/dL (8.4-10.2); CREATININE SERUM 0.9 mg/dL (0.6-1.4); GLOM FILT RATE Estimated 88.7 mL/min (>60); MAGNESIUM 1.8 mg/dL (1.6-3.0); POTASSIUM 3.3 mmol/L (3.5-5.1)
[2016-09-27 06:39] LABS: PROTHROMBIN TIME (PATIENT) 21.3 SECONDS (9.6-11.5)
[2016-09-27 07:03] LABS: BUN/CREATININE RATIO 14.54; CALCIUM SERUM 8.6 mg/dL (8.4-10.2); CREATININE SERUM 1.1 mg/dL (0.6-1.4); GLOM FILT RATE Estimated 69.6 mL/min (>60); POTASSIUM 3.5 mmol/L (3.5-5.1)
[2016-09-28 04:53] LABS: INR 1.7; PROTHROMBIN TIME (PATIENT) 18.5 SECONDS (9.6-11.5)
== END 2016-09-28 21:27 | DRG 494 ==
LOC: CED 16:36 → C3A PCU 20:40 → CEDOF 20:40 → CED 20:56 → CEDOF 20:56 → C3A PCU 23:03 → CEDOF 23:03 → C3A PCU 23:03
PROVIDERS: Emergency Medicine; Hospitalist; Internal Medicine; Orthopaedic Surgery; Physician Assistant Medical
PROC: 30233L1 Transfusion of Nonautologous Fresh Plasma into Peripheral Vein, Percutaneous Approach (ICD-10-PCS; 2016-09-23)
PROC: 30233K1 Transfusion of Nonautologous Frozen Plasma into Peripheral Vein, Percutaneous Approach (ICD-10-PCS; 2016-09-23)
PROC: 0QSH04Z Reposition Left Tibia with Internal Fixation Device, Open Approach (ICD-10-PCS; principal; 2016-09-23 13:00)
PROC: 0QSK04Z Reposition Left Fibula with Internal Fixation Device, Open Approach (ICD-10-PCS; 2016-09-23 13:00)
DX: S82.302A Unspecified fracture of lower end of left tibia, initial encounter for closed fracture (principal); E11.22 Type 2 diabetes mellitus with diabetic chronic kidney disease; I48.2 Chronic atrial fibrillation; N18.3 Chronic kidney disease, stage 3 (moderate); S82.832A Other fracture of upper and lower end of left fibula, initial encounter for closed fracture; I12.9 Hypertensive chronic kidney disease with stage 1 through stage 4 chronic kidney disease, or unspecified chronic kidney disease; G40.909 Epilepsy, unspecified, not intractable, without status epilepticus; E78.5 Hyperlipidemia, unspecified; W19.XXXA Unspecified fall, initial encounter; I25.10 Atherosclerotic heart disease of native coronary artery without angina pectoris; Z79.01 Long term (current) use of anticoagulants; Z95.0 Presence of cardiac pacemaker; E87.6 Hypokalemia; Z86.19 Personal history of other infectious and parasitic diseases; Z91.041 Radiographic dye allergy status
CPT/HCPCS: 36415; 51701; 70450; 71020; 72040; 72072; 72100; 73590; 73610; 80048; 80076; 80162; 81003; 82553; 82947; 83735; 84132; 84484; 85025; 85027; 85610; 86900; 86901; 93005; 94760; 97116; 97162; 97166; 97530; 97535; 99285; C1713; G0480; G8978-GP; G8979-GP; G8987-GO; G8988-GO; J0360; J0690; J1650; J2270; J2405; J3010; J3475; P9059

== ENCOUNTER 2016-10-17 18:03 | Inpatient (IN) | payer MEDICARE, OTHER ==
--- NOTE | ~2016-10-17 | HP ---
Unit #: [id number] #: [id number] Patient: CHAYITO LAND [id number] [place], [place] [address] [id number] I MR#: [id number] NAME: CHAYITO LAND. ROOM: 232 Age: 65 Sex: M Admission Date: 10/18/2016 : 1950 Attending Physician: Stacy Faria M.D. Primary Care Physician: Corine Askew M.D. HISTORY AND PHYSICAL CHIEF COMPLAINT Dizziness and history of fall at home. HISTORY OF PRESENT ILLNESS This is a 65-year-old male with multiple medical problems who was recently discharged from [facility] on 09/28/2016 after having surgery done on his left fibula and tibia for fracture. The patient was transferred to rehab facility. He came home just a few days ago. His friend takes care of him. Yesterday he went to the bathroom and he had a dizzy spell and fell down. His friend called 911 and sent him to the ER. According to patient, his friend does not want to take care of him anymore. The patient has some wound on his left foot. He has history of noncompliance in the past. He does not complain of any chest pain, any shortness of breath, any fever or chills or rigors. No abdominal pain. No nausea or vomiting. No constipation, no diarrhea. Only complaint he has is dizziness. According to patient, he has had vertigo for a long period of time and once in awhile he gets dizzy. He has been drinking enough water according to patient. PAST MEDICAL HISTORY 1. Coronary artery disease. 2. Atrial fibrillation. 3. Hypertension. 4. Hyperlipidemia. 5. Diabetes mellitus. 6. Hepatitis C. 7. Seizure disorder. 8. History of polysubstance abuse. 9. Depression. 10. History of recent left tibia and fibula surgery. PAST SURGICAL HISTORY 1. Appendectomy. 2. Pacemaker placement. 3. Kidney stone removal. 4. PCI with stent placement. 5. Trach placement in the past and then removal. 6. Open reduction internal fixation of left tibia fracture and left fibula fracture on 09/23/2016. ALLERGIES 1. Dilaudid. 2. Lotrel. 3. Amlodipine. Unit #: [id number] #: [id number] Patient: CHAYITO LAND SOCIAL HISTORY The patient lives at home. He was recently discharged from rehab facility. He is an active smoker. No history of alcohol abuse or drug abuse. FAMILY HISTORY Unremarkable. REVIEW OF SYSTEMS As per history of present illness. PHYSICAL EXAMINATION VITAL SIGNS: Blood pressure 125/62, respiratory rate 18, pulse 61, temperature 98.2, oxygen saturation 98%. GENERAL: The patient is a 65-year-old male lying comfortably in bed in no respiratory distress. HEAD: Normocephalic. Eye movements are normal. NECK: Supple. CHEST: Fair air entry, no additional sounds. HEART: S1, S2 positive, regular rhythm. ABDOMEN: Soft, no tenderness, no rigidity, no rebound. LOWER EXTREMITIES: Left extremity cast is present. Multiple wounds are present on the dorsal aspect of the left foot. Right lower extremity trace edema. NEUROLOGIC: Awake, alert, oriented x3. No focal neurologic deficit. DIAGNOSTIC STUDIES LABORATORY: In the ER, WBC 6.7, hemoglobin 9.4, hematocrit 28.8, platelet count 114. BMP with sodium 138, potassium 3.4, chloride 107, BUN 29, creatinine 1.6, calcium 8.2. Troponin less than 0.05. IMAGING: Chest x-ray single view was done which shows cardiomegaly with mild atelectasis. ASSESSMENT AND PLAN The patient is being admitted to med-surg unit with: 1. Dizziness and history of fall at home. 2. Left foot with multiple wounds. 3. History of left tibia and fibula shaft fracture recently, in a case at this time. 4. Hypokalemia. 5. Qqhpe-vi-ciyeeok renal failure. 6. History of coronary artery disease. 7. Diabetes mellitus. 8. History of seizures. PLAN 1. Admit to med-surg. 2. Dr. Cadet has been consulted. 3. Wound care consult is being done. 4. IV fluids have been started. 5. Potassium will be replaced. 6. Home medications have been reviewed and adjusted. 7. DVT prophylaxis has been started. 8. PT/OT will evaluate the patient. 9. Labs will be reported tomorrow morning. 10. Patient may need to be sent back to rehab facility. I have discussed Unit #: [id number] #: [id number] Patient: CHAYITO LAND with pulmonary care nurse at length. Dictated by Corry Sims TD: 10/18/2016 19:29 JOB #: [id number] HISTORY AND PHYSICAL Page 1 of 1 X Stacy Faria MD X HISTORY AND PHYSICAL
--- NOTE | ~2016-10-17 | CT71 ---
[facility] A Service [facility] RADIOLOGY TEXT RESULTS PATIENT: CHAYITO LAND LOCATION: [facility] : 49 UNIT #: [id number] AGE: [address]: Stacy Faria MD SEX: M ORDER DR: [id number] [facility] [address] [facility]. [place], [place] [address] [id number] I MR#: [id number] Acc #: [id number] NAME: CHAYITO LAND : 1950 SEX: M STUDY DATE/TIME: 10/21/2016 18:19 UNIT: [facility] ROOM: [facility] STUDY DESCRIPTION: CT Head Wo Contrast Attending Physician: Stacy Faria M.D. Ordering Physician: Imer Em M.D. Primary Care Physician: Corine Askew M.D. MEDICAL IMAGING REPORT This report is preliminary unless electronic signature is present EXAM CT head without contrast, 10/21/2016 HISTORY 65-year-old male with headache beginning today. Dizziness and confusion for [address] head 09/22/2016 TECHNIQUE Routine unenhanced axial images performed through the brain. This CT exam was performed with one or more of the following radiation dose reduction techniques: automatic exposure control, adjustment of mA and/or kV according to patient size, and iterative reconstruction. FINDINGS No hemorrhage, acute infarction, mass lesion, or abnormal extraaxial fluid collection. No midline shift or focal mass effect. Ventricular system is normal in size and configuration. Mild generalized atrophy. Mild chronic small vessel disease. No acute bony abnormality. Visualized paranasal sinuses and mastoid air cells are clear. IMPRESSION 1. No acute intracranial abnormality. 2. Stable age-related atrophy and mild chronic small vessel disease. Dictated by... Davon Velazquez M.D. [facility] A Service [facility] RADIOLOGY TEXT RESULTS PATIENT: CHAYITO LAND LOCATION: [facility] : 48 UNIT #: [id number] AGE: [address]: Stacy Faria MD SEX: M ORDER DR: THIS IS AN ELECTRONICALLY VERIFIED REPORT Davon Velazquez M.D. at 10/22/2016 3:04 PM EYAD/lorna TD: 10/22/2016 03:29 JOB #: [id number] MEDICAL IMAGING REPORT Page 1 of 1 COPY
--- NOTE | ~2016-10-17 | DS ---
Unit #: [id number] #: [id number] Patient: CHAYITO LAND [id number] [address] [id number] I MR#: [id number] NAME: CHAYITO LAND ROOM: 232 Age: 65 Sex: M Admission Date: 10/19/2016 : 1950 Discharge Date: 10/21/2016 Attending Physician: Stacy Faria M.D. Primary Care Physician: Corine Askew M.D. DISCHARGE SUMMARY DISPOSITION Going to subacute rehab. DISCHARGE MEDICATIONS 1. Tylenol p.r.n. 2. Benicar 40 mg daily. 3. Lovenox 40 mg subcu. daily. 4. Coumadin 2.5 mg daily. 5. Lyrica 150 mg t.i.d. 6. Zofran 4 mg p.o. q.4 hours p.r.n. for nausea. 7. Seroquel 150 mg at bedtime. 8. Xanax 0.5 mg t.i.d. 9. Lanoxin 0.25 mg daily. 10. Cardizem 300 mg daily. 11. Bisacodyl 10 mg rectally p.r.n. for constipation. 12. Milk of mag. p.r.n. 13. MiraLAX 17 g daily p.r.n. 14. Pepcid 20 mg b.i.d. 15. Roxicodone 10 mg q.4 p.r.n. for pain. 16. Clindamycin 600 mg p.o. t.i.d. for 7 days. DISCHARGE DIAGNOSES 1. Status post fall. 2. History of dizzy spells, status post negative workup, status post negative CT. Dizziness resolved. 3. Left lower extremity superficial wound. Wound culture with methicillin sensitive Staphylococcus aureus. Was treated with the IV vancomycin. Discharged on p.o. clindamycin for 7 more days. Afebrile. White count 5.8. No signs of active infection. Continue local wound care at the subacute rehab. 4. Acute kidney injury on chronic kidney disease. BUN and creatinine 15 and 1.5 at the time of discharge. 5. History of coronary artery disease. 6. History of atrial fibrillation on chronic anticoagulation. 7. History of hepatitis C. 8. History of seizure disorder. 9. Dyslipidemia. CONSULTS DURING THIS HOSPITAL STAY 1. Wound care consult. 2. Orthopedic surgery consult with Dr. Cadet. HISTORY OF PRESENT HOSPITAL STAY AND ACTIVE PROBLEMS DURING THIS HOSPITAL Unit #: [id number] #: [id number] Patient: CHAYITO LAND STAY Status post fall: Patient had been falling secondary to increased weakness. Had the PT/OT evaluation and recommending subacute rehab. Continue PT and OT at subacute rehab. If patient's condition and functionality do not improve, consider cardiology evaluation and consider stopping anticoagulation. Dizzy spells: Had resolved. Had the negative CT in August of this year. No signs of focal neurological deficit on exam. Again, dizzy spells resolved. Left lower extremity wound: Continue local wound care of her wound. Status post orthopedic evaluation. Wound culture as above. Continue clindamycin for seven days. Afebrile. White count 5.8. History of coronary artery disease: Continue home meds. History of AFib: Continue current meds. Continue Lovenox and Coumadin. Discontinue Lovenox once INR therapeutic between 2 and 3. History of seizure disorder: Has been seizure free. DISPOSITION Going to subacute rehab. DISCHARGE INSTRUCTIONS 1. Follow up with the subacute rehab physician. 2. Outpatient followup with orthopedic surgery. 3. Discharge meds as above. 4. Disposition as above. Dictated by... Corry Neff/fredrick TD: 10/22/2016 07:36 JOB #: [id number] DISCHARGE SUMMARY Page 1 of 1 X Imer Em MD X DISCHARGE SUMMARY
--- NOTE | ~2016-10-17 | CR72 ---
[facility] A Service of [facility] & [facility] RADIOLOGY TEXT RESULTS PATIENT: CHAYITO LAND LOCATION: [facility] 232 : 48 UNIT #: [id number] AGE: [address]: Stacy Faria MD SEX: M ORDER DR: [id number] [facility] [address] [place], [place] [address] [id number] MR#: [id number] Acc #: [id number] NAME: CHAYITO LAND : 1950 SEX: M STUDY DATE/TIME: 10/17/2016 23:12 UNIT: [facility] ROOM: [facility] STUDY DESCRIPTION: CR Chest Single View Portable Attending Physician: Stacy Faria M.D. Ordering Physician: Jason Peña M.D. Primary Care Physician: Corine Askew M.D. MEDICAL IMAGING REPORT This report is preliminary unless electronic signature is present EXAM Portable chest 10/17 2312 hours. INDICATIONS Generalized weakness and shortness of air tonight. FINDINGS AP portable chest compared with 09/22/16. The heart is enlarged. There is some mild atelectasis in the bases. Trace amount of right pleural fluid is present. No pneumothorax is seen. IMPRESSION Cardiomegaly with mild atelectasis in the bases and a trace amount of right pleural fluid. Dictated by... Moisés Josue Jr., M.D. THIS IS AN ELECTRONICALLY VERIFIED REPORT Moisés Josue Jr., M.D. at 10/18/2016 9:21 PM CEDRICK/brock TD: 10/18/2016 11:49 JOB #: [id number] MEDICAL IMAGING REPORT Page 1 of 1 COPY
[~2016-10-17 18:03] MED LIST changes: +BENICAR PO; +COUMADIN PO; +DIGOX250 MCG PO; +DILTIAZEM 24HR300 M1 PO; +LYRICA PO; +PATIENT'S PHARMACY; +SEROQUEL PO; +XANAX0.5 M1 PO
[2016-10-17 20:55] LABS: BASOPHIL# 0.1 X10e3 (0-0.3); EOSINOPHIL# 0.2 X10e3 (0-0.7); EOSINOPHIL% 3.1 % (0.0-7.0); HEMATOCRIT 29.7 % (38.0-50.0); HEMOGLOBIN 9.8 gm/dL (13.0-16.0); LYMPHOCYTE# 1.5 X10e3 (1.0-3.5); LYMPHOCYTE% 19.9 % (17.0-45.0); MEAN CELL VOLUME 89.1 FL (83-96); MEAN CORPUSCULAR HEMOGLOBIN 29.5 PG (28-34); MEAN CORPUSCULAR HGB CONC 33.2 g/dL (30-36); MEAN PLATELET VOLUME 8.4 FL (6.5-11.5); MONOCYTE# 0.8 X10e3 (0-1.0); MONOCYTE% 10.1 % (3.0-12.0); NEUTROPHIL% 65.9 % (40-75); PLATELET COUNT 127 X10e3 (140-420); RED BLOOD COUNT 3.33 X10e (3.90-5.60); RED CELL DISTRIBUTION WIDTH 16.3 % (11.0-15.5); WHITE BLOOD COUNT 7.5 X10e3 (4.0-10.5)
[2016-10-17 20:58] LABS: DIFF IND NO
[2016-10-17 21:09] LABS: INR 1.1; PARTIAL THROMBOPLASTIN TIME 28.8 SECONDS (23.5-31.3)
[2016-10-17 21:23] LABS: ALBUMIN SERUM 3.6 g/dL (3.5-5.0); BILIRUBIN, DIRECT 0.2 mg/dL (0.0-0.2); BILIRUBIN,INDIRECT 0.4 mg/dL (0.0-0.9); BILIRUBIN,TOTAL 0.6 mg/dL (0.2-2.0); BUN/CREATININE RATIO 17.36; CALCIUM SERUM 8.9 mg/dL (8.4-10.2); CREATININE SERUM 1.9 mg/dL (0.6-1.4); GLOM FILT RATE Estimated 35.9 mL/min (>60); PROTEIN TOTAL SERUM 7.2 g/dL (6.0-8.3)
[2016-10-17 22:59] LABS: POC - CKMB <1.0 ng/mL (0.0-7.9); POC - TROPONIN <0.05 ng/mL (<=0.05)
[2016-10-17 23:08] LABS: POC - CKMB <1.0 ng/mL (0.0-7.9); POC - TROPONIN <0.05 ng/mL (<=0.05)
[2016-10-18] MEDS ORDERED: ACID CONTROLLER20 MG PO (00:41)
[2016-10-18] MEDS ORDERED: MIRALAX17 GM PO (00:41)
[2016-10-18] MEDS ORDERED: TYL325 PO (00:44)
[2016-10-18] MEDS ORDERED: PERCOCET5/325 PO (00:45)
[2016-10-18] MEDS ORDERED: ZOFRAN PO (00:45)
[2016-10-18] MEDS ORDERED: DULCOLAX10 MG PR (00:47)
[2016-10-18] MEDS ORDERED: MILK OF MAGNESIA PO (00:48)
[2016-10-18 06:54] LABS: BASOPHIL# 0.1 X10e3 (0-0.3); EOSINOPHIL# 0.3 X10e3 (0-0.7); HEMATOCRIT 28.8 % (38.0-50.0); HEMOGLOBIN 9.4 gm/dL (13.0-16.0); LYMPHOCYTE# 2.4 X10e3 (1.0-3.5); LYMPHOCYTE% 36.2 % (17.0-45.0); MEAN CELL VOLUME 90.2 FL (83-96); MEAN CORPUSCULAR HEMOGLOBIN 29.4 PG (28-34); MEAN CORPUSCULAR HGB CONC 32.6 g/dL (30-36); MONOCYTE# 0.7 X10e3 (0-1.0); MONOCYTE% 10.7 % (3.0-12.0); NEUTROPHIL# 3.2 X10e3 (1.5-7.1); NEUTROPHIL% 48.1 % (40-75); PLATELET COUNT 114 X10e3 (140-420); RED BLOOD COUNT 3.19 X10e (3.90-5.60); RED CELL DISTRIBUTION WIDTH 15.9 % (11.0-15.5); WHITE BLOOD COUNT 6.7 X10e3 (4.0-10.5)
[2016-10-18 07:01] LABS: DIFF IND NO
[2016-10-18 07:35] LABS: BUN/CREATININE RATIO 18.12; CALCIUM SERUM 8.2 mg/dL (8.4-10.2); CREATININE SERUM 1.6 mg/dL (0.6-1.4); GLOM FILT RATE Estimated 44.3 mL/min (>60); POTASSIUM 3.4 mmol/L (3.5-5.1)
[2016-10-18] MEDS ORDERED: DURAGESIC1 EAC1 TD (11:50)
[2016-10-18 13:40] LABS: URINE SOURCE CLEAN CATCH
[2016-10-18 13:56] LABS: URINE APPEARANCE CLEAR; URINE BILIRUBIN NEG (NEG); URINE BLOOD NEG (NEG); URINE COLOR YELLOW; URINE GLUCOSE NEG (NEG); URINE KETONE NEG (NEG); URINE LEUKOCYTE ESTERASE NEG (NEG); URINE NITRATE NEG (NEG); URINE PH 5.5 (5-8); URINE PROTEIN NEG (NEG); URINE UROBILINOGEN 0.2 MG/DL (NEG)
[2016-10-18 13:58] LABS: CULTURE INDICATED? NO
[2016-10-19 05:27] LABS: HEMOGLOBIN 9.2 gm/dL (13.0-16.0); MEAN CELL VOLUME 88.9 FL (83-96); MEAN CORPUSCULAR HEMOGLOBIN 29.3 PG (28-34); MEAN CORPUSCULAR HGB CONC 32.9 g/dL (30-36); MEAN PLATELET VOLUME 8.7 FL (6.5-11.5); RED BLOOD COUNT 3.14 X10e (3.90-5.60); RED CELL DISTRIBUTION WIDTH 16.1 % (11.0-15.5); WHITE BLOOD COUNT 5.1 X10e3 (4.0-10.5)
[2016-10-19 06:02] LABS: BUN/CREATININE RATIO 16.15; CALCIUM SERUM 8.4 mg/dL (8.4-10.2); CREATININE SERUM 1.3 mg/dL (0.6-1.4); GLOM FILT RATE Estimated 56.9 mL/min (>60); POTASSIUM 3.6 mmol/L (3.5-5.1)
[2016-10-20 06:54] LABS: INR 1.1; PROTHROMBIN TIME (PATIENT) 11.4 SECONDS (10.0-11.7)
[2016-10-20 07:45] LABS: BUN/CREATININE RATIO 13.84; CALCIUM SERUM 8.8 mg/dL (8.4-10.2); CREATININE SERUM 1.3 mg/dL (0.6-1.4); GLOM FILT RATE Estimated 56.9 mL/min (>60)
[2016-10-20 21:36] LABS: INR 1.1; PROTHROMBIN TIME (PATIENT) 11.6 SECONDS (10.0-11.7)
[2016-10-21 05:23] LABS: HEMOGLOBIN 9.6 gm/dL (13.0-16.0); MEAN CELL VOLUME 88.6 FL (83-96); MEAN CORPUSCULAR HEMOGLOBIN 29.3 PG (28-34); MEAN CORPUSCULAR HGB CONC 33.1 g/dL (30-36); MEAN PLATELET VOLUME 8.1 FL (6.5-11.5); RED BLOOD COUNT 3.28 X10e (3.90-5.60); RED CELL DISTRIBUTION WIDTH 15.8 % (11.0-15.5); WHITE BLOOD COUNT 5.8 X10e3 (4.0-10.5)
[2016-10-21 05:33] LABS: INR 1.1
[2016-10-21 05:46] LABS: CALCIUM SERUM 8.8 mg/dL (8.4-10.2); CREATININE SERUM 1.5 mg/dL (0.6-1.4); GLOM FILT RATE Estimated 47.8 mL/min (>60); POTASSIUM 3.7 mmol/L (3.5-5.1)
[2016-10-22 06:16] LABS: BUN/CREATININE RATIO 12.85; CALCIUM SERUM 8.7 mg/dL (8.4-10.2); CREATININE SERUM 1.4 mg/dL (0.6-1.4); POTASSIUM 3.4 mmol/L (3.5-5.1)
== END 2016-10-22 14:05 | DRG 639 ==
LOC: CED 18:03 → CEDOF 10-18 00:40 → C2A 10-18 00:40 → CED 10-18 00:40 → CEDOF 10-18 01:11 → C2A 10-18 02:07 → CEDOF 10-18 02:07 → C2A 10-19 14:20 → CEDOF 10-19 14:20 → C2A 10-22 14:05
PROVIDERS: Emergency Medicine; Hospitalist; Physician Assistant Medical
DX: E11.621 Type 2 diabetes mellitus with foot ulcer (principal); N17.9 Acute kidney failure, unspecified; B95.62 Methicillin resistant Staphylococcus aureus infection as the cause of diseases classified elsewhere; I48.2 Chronic atrial fibrillation; I12.9 Hypertensive chronic kidney disease with stage 1 through stage 4 chronic kidney disease, or unspecified chronic kidney disease; G40.909 Epilepsy, unspecified, not intractable, without status epilepticus; E78.5 Hyperlipidemia, unspecified; R42 Dizziness and giddiness; S82.292D Other fracture of shaft of left tibia, subsequent encounter for closed fracture with routine healing; S82.492D Other fracture of shaft of left fibula, subsequent encounter for closed fracture with routine healing; W19.XXXD Unspecified fall, subsequent encounter; E87.6 Hypokalemia; N18.9 Chronic kidney disease, unspecified; Z95.0 Presence of cardiac pacemaker; I25.10 Atherosclerotic heart disease of native coronary artery without angina pectoris; Z95.5 Presence of coronary angioplasty implant and graft; F17.210 Nicotine dependence, cigarettes, uncomplicated; Z79.01 Long term (current) use of anticoagulants; Z91.81 History of falling; Z88.8 Allergy status to other drugs, medicaments and biological substances; Z86.19 Personal history of other infectious and parasitic diseases
CPT/HCPCS: 36415; 70450; 71010; 80048; 80076; 80202; 81003; 82553; 84484; 85025; 85027; 85610; 85730; 87070; 87075; 87077; 87186; 87205; 96360; 97116; 97162; 97166; 97530; 97535; 99285; G8978-GP; G8979-GP; G8987-GO; G8988-GO; J1650; J3370